=== PATIENT | female | born 1985 | race Caucasian/White ===

== ENCOUNTER 2022-03-05 09:44 | Emergency (ER) | payer OTHER ==
[2022-03-05] MEDS ORDERED: diphenhydrAMINE 50 MG/ML VIAL ONE (10:20)
[2022-03-05] MEDS ORDERED: Metoclopramide HCl 10 MG/2 ML VIAL ONE (10:21)
[2022-03-05] MEDS ORDERED: Ketorolac Tromethamine 30 MG/ML VIAL ONE (10:21)
== END 2022-03-05 11:35 | disposition home or self-care (01) ==
LOC: CSHERS 09:44
DX: G43.909 Migraine, unspecified, not intractable, without status migrainosus (principal); H00.016 Hordeolum externum left eye, unspecified eyelid
CPT/HCPCS: 96374; 96375; J1200; J1885; J2765